=== PATIENT | male | born 1990 | race African-American/Black ===

== ENCOUNTER 2018-11-29 12:30 | Day surgery (SDC) | payer OTHER ==
[~2018-11-29 12:30] MED LIST: ACETAMINOPHEN 1,000 MG/100 ML BTL IVPB ONE; CEFAZOLIN 1G VIAL IVP ONE; WATER STERILE FOR INJECTION 20 ML VIAL MC ONE
[2018-11-29] MEDS ORDERED: SEVOFLURANE 250 ML INH ONE (12:31)
[2018-11-29] MEDS ORDERED: KETOROLAC 30 MG/ML VIAL IVP ONE (12:31)
[2018-11-29] MEDS ORDERED: LIDOCAINE 2% MDV (20MG/ML) 20ML VIAL IV ONE (12:31)
[2018-11-29] MEDS ORDERED: DEXAMETHASONE 4 MG/ML 1ML VIAL IVP ONE (12:31)
[2018-11-29] MEDS ORDERED: PROPOFOL 10 MG/ML VIAL IV ONE (12:31)
[2018-11-29] MEDS ORDERED: ONDANSETRON HCL IV 4 MG/2 ML VIAL IVP ONE (12:31)
[2018-11-29] MEDS ORDERED: MIDAZOLAM HCL 2MG/2ML VIAL IV ONE (12:31)
[2018-11-29] MEDS ORDERED: FENTANYL PF 100MCG/2ML VIAL IV ONE (12:31)
[2018-11-29] MEDS ORDERED: GLYCOPYRROLATE 0.2 MG/ML ML IV ONE (12:31)
[2018-11-29] MEDS ORDERED: MORPHINE SULFATE 4 MG/ML VIAL ONE (15:40)
[2018-11-29] MEDS ORDERED: RINGERS SOLUTION,LACTATED 1,000 ML IV ONE (16:18)
[2018-11-29] MEDS ORDERED: HYDROCODONE/APAP 7.5/325MG TABLET PO ONE (16:38)
--- NOTE | 2018-11-30 08:40 | Operative Note ---
DATE OF SURGERY: 11/29/2018 PREOPERATIVE DIAGNOSIS: Internal derangement of the right knee. POSTOPERATIVE DIAGNOSES: 1. Grade 3 chondromalacia of the medial femoral condyle. 2. Complex tear involving the posterior horn of the medial meniscus. OPERATION: 1. Right knee arthroscopy with partial medial meniscectomy. 2. Right knee arthroscopy with debridement of the medial femoral condyle and chondroplasty. STAFF SURGEON: Tino Hidalgo MD ANESTHESIA: General. PREPARATION: Chloraprep. INDIVIDUAL CONSIDERATIONS: None. PROCEDURE: The patient was taken to the operating room and placed supine on the operating room table. The patient had a successful induction of a general anesthetic. The right lower extremity was prepped and draped in the usual fashion. The patient had a superolateral inflow cannula placed. Skin was infiltrated with 0.5% Marcaine with epinephrine prior. The knee was then inflated with normal saline. An inferomedial and an inferolateral portal were made in a similar fashion. The arthroscope was introduced through the inferolateral portal up into the pouch. Patellofemoral joint was normal. No loose body were seen in the pouch or either gutter. Medially, the medial compartment showed a flap of medial femoral condyle about the size just under a quarter being unstable, luckily not down to bone. This was smoothed off with a shaver. He had a complex split tear involving the posterior horn of the medial meniscus which was debrided back to a stable rim with basket forceps and a shaver. The medial tibial plateau and remainder of the meniscus, cruciates, and lateral compartment structures were normal. The knee was then irrigated out with saline to remove loose floating debris. Portals were closed with han, and 20 mL of 0.25% Marcaine with epinephrine along with 4 mg of morphine and 40 mg of Depo-Medrol were injected into the knee. A sterile bulky compressive dressing was applied. The patient tolerated procedure well. Needle and sponge counts were correct. Estimated blood loss was minimal. He was taken back to recovery in good condition. There were no complications. [facility]
== END 2018-11-29 16:50 | disposition home or self-care (01) ==
LOC: SUR 12:30
PROVIDERS: ATTEND Orthopaedic Surgery
DX: S83.231A Complex tear of medial meniscus, current injury, right knee, initial encounter (principal); M94.261 Chondromalacia, right knee
CPT/HCPCS: 29881; 01400; J1885; J2405; J3010; J2270; J0690; J7120